=== PATIENT | female | born 1975 | race Caucasian/White ===

== ENCOUNTER 2022-06-24 11:02 | Emergency (ER) | payer BC ==
[2022-06-24 11:54] LABS: BASOPHILS ABSOLUTE AUTO 0.03 K/mm3 (0.01-0.08); BASOPHILS PERCENT AUTO 0.5 % (0.1-1.2); EOSINOPHILS ABSOLUTE AUTO 0.11 K/mm3 (0.04-0.36); EOSINOPHILS PERCENT AUTO 1.8 (0.7-5.8); HEMOGLOBIN 13.5 gm/dl (11.2-15.7); IMMATURE GRAN ABSOLUTE AUTO 0.01 K/mm3 (0.00-0.10); IMMATURE GRAN PERCENT AUTO 0.2 % (<=1.0); LYMPHOCYTES ABSOLUTE AUTO 2.22 K/mm3 (1.18-3.74); LYMPHOCYTES PERCENT AUTO 36.6 % (19.3-51.7); MEAN CORPUSCULAR HEMOGLOBIN 28.4 pg (25.6-32.2); MEAN CORPUSCULAR HGB CONC 32.9 g/dl (32.2-35.5); MEAN CORPUSCULAR VOLUME 86.3 fl (79.4-94.8); MEAN PLATELET VOLUME 9.5 fl (9.4-12.3); MONOCYTES ABSOLUTE AUTO 0.46 K/mm3 (0.24-0.36); MONOCYTES PERCENT AUTO 7.6 % (4.7-12.5); NEUTROPHILS ABSOLUTE AUTO 3.24 K/mm3 (1.56-6.13); NEUTROPHILS PERCENT AUTO 53.3 % (34.0-71.1); PLATELET COUNT,PLT 306 K/mm3 (182-369); RED BLOOD CELL COUNT 4.75 M/mm3 (3.98-5.22); WHITE BLOOD CELL COUNT,WBC 6.07 K/mm3 (3.98-10.04)
[2022-06-24 12:16] LABS: A/G RATIO 1.1 (1-2); ALBUMIN 3.8 g/dl (3.4-5.0); ANION GAP 10.7 (5-15); BILIRUBIN TOTAL 0.3 mg/dL (0.2-1.0); CALCIUM 9.1 mg/dL (8.5-10.1); CREATININE 0.7 mg/dL (0.55-1.02); EST CRCL DRUG DOSING (CG) 95.58 mL/min; POTASSIUM,K 3.7 mEq/L (3.5-5.1); PROTEIN TOTAL,TP 7.3 g/dl (6.4-8.2)
== END 2022-06-24 13:06 | disposition home or self-care (01) ==
LOC: JD.ED 11:02
DX: I10 Essential (primary) hypertension (principal); Z88.2 Allergy status to sulfonamides; Z79.899 Other long term (current) drug therapy
CPT/HCPCS: 36415; 80053; 84484; 85025; 93005; 93010; 99283; 99284

== ENCOUNTER 2023-07-21 20:08 | Day surgery (SDC) | payer BC ==
[2023-07-21 21:50] LABS: BASOPHILS ABSOLUTE AUTO 0.1 K/mm3 (0.0-0.2); BASOPHILS PERCENT AUTO 0.4 % (0.0-1.0); EOSINOPHILS PERCENT AUTO 0.3 % (0.0-6.0); HEMATOCRIT 33.2 % (37.0-47.0); HEMOGLOBIN 11.3 gm/dl (12.0-16.0); IMMATURE GRAN ABSOLUTE AUTO 0.05 K/mm3 (0.00-0.05); IMMATURE GRAN PERCENT AUTO 0.3 % (0.0-0.4); LYMPHOCYTES ABSOLUTE AUTO 2.8 K/mm3 (1.0-4.8); LYMPHOCYTES PERCENT AUTO 19.1 % (24.0-44.0); MEAN CORPUSCULAR HEMOGLOBIN 28.7 pg (28.0-32.0); MEAN CORPUSCULAR VOLUME 84.3 fl (83.0-99.0); MEAN PLATELET VOLUME 8.6 fl (9.4-12.3); MONOCYTES ABSOLUTE AUTO 1.3 K/mm3 (0.0-0.8); MONOCYTES PERCENT AUTO 8.9 % (0.0-8.0); NEUTROPHILS ABSOLUTE AUTO 10.4 K/mm3 (1.8-7.7); PLATELET COUNT,PLT 263 K/mm3 (150-400); RED BLOOD CELL COUNT 3.94 M/mm3 (4.10-5.30); WHITE BLOOD CELL COUNT,WBC 14.68 K/mm3 (3.9-11.3)
[2023-07-21] MEDS: Iopamidol 612 MG/ML 100 ML Bottle IVPUSH ONE (21:57)
[2023-07-21 22:14] LABS: A/G RATIO 0.9 (1-2); ALBUMIN 3.1 g/dl (3.4-5.0); ANION GAP 12.5 (5-15); BILIRUBIN TOTAL 0.7 mg/dL (0.2-1.0); CALCIUM 8.5 mg/dL (8.5-10.1); EST CRCL DRUG DOSING (CG) 63.71 mL/min; POTASSIUM,K 3.5 mEq/L (3.5-5.1); PROTEIN TOTAL,TP 6.7 g/dl (6.4-8.2)
[2023-07-21 22:16] LABS: LACTIC ACID 0.7 mmol/L (0.4-2.0)
[2023-07-21] MEDS: fentaNYL 100 MCG/2 ML SDV IVPUSH ONE (22:16)
[2023-07-21] MEDS: Sodium Chloride 0.9% 1,000 ML IV ONE (22:16)
[2023-07-21 22:53] LABS: APPEARANCE,URINE CLEAR (Clear); BILIRUBIN,URINE NEGATIVE (Negative); COLOR,URINE LIGHT YELLOW (Yellow); GLUCOSE,URINE NEGATIVE (Negative); KETONES,URINE 1+ (Negative); LEUKOCYTE ESTERASE,URINE NEGATIVE (Negative); NITRITE,URINE NEGATIVE (Negative); OCCULT BLOOD,URINE NEGATIVE (Negative); PROTEIN,URINE NEGATIVE (Negative); UROBILINOGEN,URINE 0.2 (0.2-1.0)
[2023-07-21] MEDS: Sodium Chloride 0.9% 10 ML Syringe FLUSH PRN (23:11)
[2023-07-21] MEDS ORDERED: Rocuronium 50 MG/5 ML Vial ONE (23:19)
[2023-07-21] MEDS ORDERED: Lidocaine 1% 5 ML VIAL ONE (23:19)
[2023-07-21] MEDS ORDERED: Ondansetron 4 MG/2 ML SDV ONE (23:19)
[2023-07-21] MEDS ORDERED: fentaNYL 250 MCG/5 ML SDV ONE (23:19)
[2023-07-21] MEDS ORDERED: Midazolam 1 MG/ML 2 ML SDV ONE (23:19)
[2023-07-21] MEDS ORDERED: Propofol 200 MG/20 ML SDV ONE (23:19)
[2023-07-21] MEDS ORDERED: ePHEDrine 50 MG/ML SDV ONE (23:44)
[2023-07-21] MEDS ORDERED: Dexamethasone 4 MG/ML 5 ML MDV ONE (23:46)
[2023-07-21] MEDS: Piperacillin/Tazobactam 4.5 GM in Sodium Chloride 0.9% 100 ML IV ONE (23:59)
[2023-07-22] MEDS ORDERED: Lactated Ringers 1,000 ML ONE ×2 (00:03)
[2023-07-22] MEDS ORDERED: Neostigmine Methylsulfate 10 MG/10 ML MDV ONE (00:22)
[2023-07-22] MEDS ORDERED: Meperidine 50 MG/ML Vial ONE (00:29)
[2023-07-22] MEDS ORDERED: Ketorolac 30 MG/ML SDV ONE (00:33)
[2023-07-22] MEDS: Lidocaine 1% 30 ML SDV ONE (00:59)
[2023-07-22] MEDS: EPINEPHrine 1 MG/ML SDV ONE (00:59)
[2023-07-22] MEDS: Bupivacaine 0.5% 30 ML SDV ONE (00:59)
[2023-07-22] MEDS ORDERED: Ondansetron 4 MG/2 ML SDV IVPUSH PRN (01:01)
[2023-07-22] MEDS ORDERED: fentaNYL 100 MCG/2 ML SDV IVPUSH PRN (01:01)
[2023-07-22] MEDS ORDERED: HYDROmorphone 0.5 MG/0.5 ML Syringe IVPUSH PRN (01:01)
[2023-07-22] MEDS: Lactated Ringers 1,000 ML ONE (03:18)
[2023-07-22] MEDS: Lactated Ringers 500 ML IV ONE (05:15)
== END 2023-07-22 07:52 | disposition home or self-care (01) ==
LOC: JD.ED 20:08 → JD.SDS 07-22 00:12 → JD.MS 07-22 02:43 → JD.SDS 07-22 07:52
PROVIDERS: ATTEND Surgery
DX: K35.31 Acute appendicitis with localized peritonitis and gangrene, without perforation (principal); Z88.2 Allergy status to sulfonamides; I10 Essential (primary) hypertension; E66.9 Obesity, unspecified
CPT/HCPCS: 36415; 44970; 74177; 80053; 81003; 83605; 83690; 84702; 85025; 87040; 96361; 96365; 96375; 99284; J0171; J0665; J1100; J1596; J1885; J2175; J2250; J2405; J2543; J2704; J2710; J3010; J3490; J7030; J7120; Q9967; 00840; 99285

== ENCOUNTER 2024-11-18 06:30 | Day surgery (SDC) | payer BC ==
[~2024-11-18 06:30] MED LIST: Sodium Chloride 0.9% 10 ML Syringe FLUSH PRN; Sodium Chloride 0.9% 10 ML Syringe FLUSH SCH
[2024-11-18] MEDS ORDERED: Ketamine HCL/NACL, ISO-OSM 50 MG/5 ML Syringe ONE (06:38)
[2024-11-18] MEDS ORDERED: Dexamethasone 4 MG/ML 5 ML MDV ONE (06:38)
[2024-11-18] MEDS ORDERED: Propofol 200 MG/20 ML SDV ONE (06:38)
[2024-11-18] MEDS ORDERED: Ondansetron 4 MG/2 ML SDV ONE (06:38)
[2024-11-18] MEDS ORDERED: propofoL 500 MG/50 ML 50 ML ONE (06:38)
[2024-11-18] MEDS ORDERED: fentaNYL 250 MCG/5 ML SDV ONE (06:38)
[2024-11-18] MEDS ORDERED: dexmedeTOMIDine HCl 200 MCG/2 ML SDV ONE (06:38)
[2024-11-18 06:45] LABS: BASOPHILS ABSOLUTE AUTO 0.1 K/mm3 (0.0-0.2); BASOPHILS PERCENT AUTO 1.1 % (0.0-1.0); EOSINOPHILS ABSOLUTE AUTO 0.2 K/mm3 (0.0-0.4); EOSINOPHILS PERCENT AUTO 2.7 % (0.0-6.0); IMMATURE GRAN ABSOLUTE AUTO 0.01 K/mm3 (0.00-0.05); IMMATURE GRAN PERCENT AUTO 0.2 % (0.0-0.4); LYMPHOCYTES ABSOLUTE AUTO 3.6 K/mm3 (1.0-4.8); LYMPHOCYTES PERCENT AUTO 53.7 % (24.0-44.0); MEAN PLATELET VOLUME 9.6 fl (9.4-12.3); MONOCYTES ABSOLUTE AUTO 0.5 K/mm3 (0.0-0.8); MONOCYTES PERCENT AUTO 7.1 % (0.0-8.0); NEUTROPHILS ABSOLUTE AUTO 2.4 K/mm3 (1.8-7.7); NEUTROPHILS PERCENT AUTO 35.2 % (41.0-71.0); NRBC ABSOLUTE 0.00 (0.00-0.02); NRBC PERCENT 0.0 % (0.0-0.2); PLATELET COUNT,PLT 283 K/mm3 (150-400); RED BLOOD CELL COUNT 5.01 M/mm3 (4.10-5.30); WHITE BLOOD CELL COUNT,WBC 6.65 K/mm3 (3.9-11.3)
[2024-11-18] MEDS ORDERED: Phenylephrine 1% 10 MG/ML SDV ONE (06:46)
[2024-11-18] MEDS: Lactated Ringers 1,000 ML IV SCH (06:48)
[2024-11-18 06:58] LABS: BLOOD UREA NITROGEN,BUN 16.0 mg/dL (7-18); CARBON DIOXIDE,CO2 27.0 mEq/L (21-32); CHLORIDE,CL 105.0 mEq/L (98-107); CREATININE 0.8 mg/dL (0.55-1.02); EST CRCL DRUG DOSING (CG) 77.88 mL/min; ESTIMATED GFR 89.0 mL/min (>60); GLUCOSE RANDOM 118.0 mg/dL (70-99); POTASSIUM,K 4.1 mEq/L (3.5-5.1); SODIUM,NA 141.0 mEq/L (136-145)
[2024-11-18] MEDS ORDERED: Lidocaine 1% with EPINEPHrine 1:100,000 20 ML MDV ONE (07:22)
[2024-11-18] MEDS ORDERED: ePHEDrine 50 MG/ML SDV ONE (07:47)
[2024-11-18] MEDS ORDERED: Ondansetron 4 MG/2 ML SDV IVPUSH PRN (08:07)
[2024-11-18] MEDS ORDERED: fentaNYL 100 MCG/2 ML SDV IVPUSH PRN (08:07)
[2024-11-18] MEDS: Lidocaine 1% with EPINEPHrine 1:100,000 20 ML MDV INJECT ONE (08:18)
[2024-11-18] MEDS ORDERED: Glycopyrrolate 0.2 MG/ML 2 ML SDV ONE (08:36)
[2024-11-18] MEDS ORDERED: Ketorolac 30 MG/ML SDV ONE (08:57)
[2024-11-18] MEDS: Acetaminophen/oxyCODONE 325-5 MG Tab PO PRN (10:06)
== END 2024-11-18 12:25 | disposition home or self-care (01) ==
LOC: JD.SDS 06:30
PROVIDERS: ATTEND Obstetrics & Gynecology
DX: D25.2 Subserosal leiomyoma of uterus (principal); N80.03 Adenomyosis of the uterus; N72 Inflammatory disease of cervix uteri; I10 Essential (primary) hypertension; Z79.899 Other long term (current) drug therapy
CPT/HCPCS: 36415; 58552; 80048; 81025; 85025; 86850; 86900; 86901; A9270; J0665; J0690; J1100; J1596; J1885; J2004; J2405; J2704; J3010; J7120; 00944; J2371; J3490